=== PATIENT | female | born 1940 | race Caucasian/White ===

== ENCOUNTER 2017-02-02 18:54 | Inpatient (IN) | payer MEDICARE, OTHER ==
[~2017-02-02] VITALS: Ht 167.6 cm; Wt 55.8 kg
--- NOTE | 2017-02-02 19:55 | Diagnostic Imaging Report ---
Examination: Single AP view of the chest. COMPARISON: None. INDICATION: Weakness DISCUSSION: The lungs are well-inflated. There is a small left pleural effusion with adjacent lingular and left lower lobe airspace opacity. The right lung is grossly clear. Cardiomediastinal contour is obscured at the apex. There is atherosclerotic calcification of the aortic arch. No acute osseous abnormality. Postsurgical changes along the left lateral chest wall. IMPRESSION: Small left pleural effusion with adjacent lingular and lower lobe airspace disease, which may reflect atelectasis, aspiration, or pneumonia in the appropriate clinical setting. Signed by: Dr. Burt Rosas M.D. on 02/02/2017 7:51 PM
[2017-02-02 21:08] LABS: BASOPHILS # (AUTO) 0.1 (0.0-0.1); EOSINOPHILS # (AUTO) 0.1 (0.0-0.4); EOSINOPHILS % 1.5 % (0.0-6.0); HEMATOCRIT 37.3 % (34.2-44.1); LYMPHOCYTES # (AUTO) 1.2 (1.0-3.2); LYMPHOCYTES % 24.5 % (18.0-39.1); MEAN CORPUSCULAR HEMOGLOBIN 27.3 pg (28-32); MEAN CORPUSCULAR HGB CONC 32.2 g/dL (31-35); MEAN CORPUSCULAR VOLUME 84.8 fL (81-99); MONOCYTES # (AUTO) 0.3 (0.2-0.8); MONOCYTES % 5.8 % (4.4-11.3); NEUTROPHILS # (AUTO) 3.2 (2.1-6.9); PLATELET COUNT 221 x10e3/uL (140-360); RED CELL DISTRIBUTION WIDTH 13.9 % (11.7-14.4)
[2017-02-02] MEDS ORDERED: SERTRALINE HCL50 MG PO (21:11)
[2017-02-02] MEDS ORDERED: OMEPRAZOLE40 MG PO (21:11)
[2017-02-02] MEDS ORDERED: LISINOPRIL2.5 MG PO (21:11)
[2017-02-02] MEDS ORDERED: POTASSIUM CHLO10 ME1 PO (21:11)
[2017-02-02] MEDS ORDERED: ASPIRIN EC81 MG PO (21:11)
[2017-02-02 21:26] LABS: ALANINE AMINOTRANSFERASE 11 IU/L (0-55); ALBUMIN 3.4 g/dL (3.5-5.0); ALBUMIN/GLOBULIN RATIO 0.8 (0.8-2.0); ALKALINE PHOSPHATASE 90 IU/L (40-150); ANION GAP 13.1 mmol/L (8-16); BLOOD UREA NITROGEN 20 mg/dL (7-26); BUN/CREATININE RATIO 29 (6-25); CALCIUM 9.7 mg/dL (8.4-10.2); CARBON DIOXIDE 31 mmol/L (22-29); CHLORIDE 101 mmol/L (98-107); EST GLOMERULAR FILTRATION RATE > 60 ML/MIN (60-); GLUCOSE 144 mg/dL (74-118); POTASSIUM 3.1 mmol/L (3.5-5.1); SODIUM 142 mmol/L (136-145)
[2017-02-02] MEDS ORDERED: CEFTRIAXONE SOD 1 GM VIAL IV STA (23:41)
[2017-02-02] MEDS ORDERED: AZITHROMYCIN 500MG/NS 250 ML 250 ML IV STA (23:41)
[2017-02-02 23:56] LABS: BILIRUBIN,URINE 1+ (NEGATIVE); KETONES,URINE TRACE (NEGATIVE); LEUKOCYTE ESTERASE ,URINE TRACE (NEGATIVE); NITRITE,URINE NEGATIVE (NEGATIVE); URINE UROBILINOGEN 8 mg/dL (0.2 - 1)
[2017-02-02 23:57] LABS: CLARITY,URINE SL CLOUDY (CLEAR); COLOR,URINE YELLOW (YELLOW); PROTEIN,URINE DIPSTICK TRACE (NEGATIVE)
[2017-02-03 00:03] LABS: BACTERIA,URINE FEW /HPF; EPITHELIAL CELLS,URINE RARE /LPF; RBC,URINE 0-5 /HPF (0-5)
[2017-02-03] MEDS ORDERED: AZITHROMYCIN 500MG/SOD CHL 0.9% 250ML BAG IV SCH (00:15)
[2017-02-03] MEDS ORDERED: CEFTRIAXONE SOD 1 GM VIAL IV SCH (00:15)
[2017-02-03] MEDS ORDERED: KCL 20MEQ/.9 SOD CHL 1,000 ML IV ONE (00:15)
[2017-02-03 02:00] VITALS: BP 187/90
[2017-02-03 06:53] VITALS: BP 187/90
[2017-02-03] MEDS ORDERED: CLONIDINE HCL 0.1 MG TAB PO ONE (07:00)
[2017-02-03] MEDS ORDERED: CLONIDINE HCL 0.1 MG TAB PO PRN (08:00)
[2017-02-03 08:21] VITALS: BP 137/76
[2017-02-03] MEDS ORDERED: ASPIRIN 81 MG ENTERIC COATED PO SCH (09:00)
[2017-02-03] MEDS: LISINOPRIL 10 MG TAB PO SCH ×2 (09:00→17:00)
[2017-02-03] MEDS: POTASSIUM CHLORIDE 10 MEQ TABCR PO SCH (09:00)
[2017-02-03] MEDS ORDERED: LISINOPRIL 2.5 MG TAB PO SCH ×2 (09:00→17:00)
[2017-02-03] MEDS: SERTRALINE HCL 50 MG TAB PO SCH (09:00)
[2017-02-03] MEDS: MEMANTINE 10 MG TAB PO SCH ×2 (09:00→17:00)
[2017-02-03 09:27] LABS: ANION GAP 12.4 mmol/L (8-16); BLOOD UREA NITROGEN 15 mg/dL (7-26); BUN/CREATININE RATIO 27 (6-25); CALCIUM 8.2 mg/dL (8.4-10.2); CARBON DIOXIDE 29 mmol/L (22-29); CHLORIDE 107 mmol/L (98-107); CREATININE, SERUM 0.56 mg/dL (0.57-1.11); EST GLOMERULAR FILTRATION RATE > 60 ML/MIN (60-); GLUCOSE 92 mg/dL (74-118); POTASSIUM 3.4 mmol/L (3.5-5.1); SODIUM 145 mmol/L (136-145)
[2017-02-03 09:42] LABS: THYROID STIMULATING HORMONE 0.791 uIU/mL (0.350-4.940)
[2017-02-03] MEDS ORDERED: HEPARIN SOD (PORCINE) 5,000 UNIT/ML VIAL SC SCH (10:00)
--- NOTE | 2017-02-03 10:27 | Diagnostic Imaging Report ---
PROCEDURE:US CHEST (INCL MEDIASTINUM) COMPARISON:[facility], CHEST SINGLE (NOT PORTABLE), 02/02/2017, 19:03. INDICATION:R/O PLEURAL EFFUSION TECHNIQUE:Yepez scale color Doppler ultrasound chest. FINDINGS: See conclusion. CONCLUSION: 1. Moderate left pleural effusion with accompanying atelectasis. 2. No evidence of right effusion. Dictated by: Josh Dawson M.D. on 02/03/2017 at 10:36 Electronically approved by: Josh Dawson M.D. on 02/03/2017 at 10:36
--- NOTE | 2017-02-03 10:49 | Diagnostic Imaging Report ---
This report includes an Addendum and supersedes previous reports for this exam. PROCEDURE:CT CHEST WITHOUT CONTRAST COMPARISON:[facility], CHEST SINGLE (NOT PORTABLE), 02/02/2017 INDICATIONS:Atelectasis TECHNIQUE: Routine protocol Volumetric CT chest. No intravenous or enteric contrast. Multiplanar reformatted images. DLP: 1320.13 FINDINGS: Lungs: Near-complete left lower lobe collapse. Mild left upper lobe interlobular septal thickening with minimal groundglass opacity. No definitive focal air space disease. Mild dependent right lower lobe medial subsegmental atelectasis and trace scar. Noncalcified posterior medial right upper lobe pleural based nodule measuring 8mm (image 31, series 5). Right lung is otherwise normal. Pleura: Large left pleural effusion. Normal right hemithorax Airways: Normal Lymph nodes: Normal Pulmonary arteries: Normal caliber. Pulmonary artery diameter 2.9 cm. Thoracic aorta and great vessels: Mild aortic arch atherosclerosis. Normal caliber. Heart and pericardium: Mild cardiomegaly. Trace pericardial effusion. Subdiaphragmatic organs: The liver demonstrates prominent portal veins with a smooth contour. The spleen is partially imaged, but enlarged with multiple low attenuation foci at the periphery and hilum measuring between 2 cm in diameter and 1.3 cm in thickness. Sliding-type hiatal hernia. Skeleton: Intact. Age expected multilevel degenerative disc disease. Healed sternum fracture. Soft tissues: Normal CONCLUSION: 1. Large left pleural effusion with near complete left lower lobe collapse. 2. Mild left upper lobe groundglass opacity may be a combination of subsegmental atelectasis with or without developing infection. No evidence of bronchial obstruction. 3. Nonspecific 8mm pleural based right upper lobe nodule. Followup CT recommended in 3 months. 4. Cardiomegaly with trace pericardial effusion. 5. Splenomegaly with portal vein prominent suggesting portal hypertension. A 2 cm low nodule is present in the spleen. Additionally, there is low attenuation along the splenic capsule. Contrast enhanced CT abdomen and pelvis is recommended for characterization of this findings as the differential diagnosis includes subacute splenic hematoma and perisplenic ascites (considered less likely given the absence of perihepatic ascites). Dictated by: Josh Dawson M.D. on 02/03/2017 at 10:57 Electronically approved by: Josh Dawson M.D. on 02/03/2017 at 10:57 ADDENDUM: Subacute fractures of the left fourth through tenth ribs. 3.2 x 2.2 cm right breast mass. The above findings were also noted on the CT abdomen from the same date. Dr. Salomon discussed these findings with Dr. Vail on 02/03. Dictated by: Josh Dawson M.D. on 02/06/2017 at 15:45 Electronically approved by: Josh Dawson M.D. on 02/06/2017 at 15:45
[2017-02-03] MEDS: PANTOPRAZOLE 40 MG 10ML VIAL IV SCH (11:00)
--- NOTE | 2017-02-03 11:05 | Consultation ---
DATE OF CONSULTATION: February 03, 2017 PULMONARY CONSULTATION An unfortunate 76-year-old woman admitted from the doctor's office. She has been living with the daughter, and admitted with altered mental status and suspected urinary tract infection and pneumonia, possible aspiration. She has a history of dementia, history of hypertension, history of left mastectomy for cancer. Not willing to go into her history other than she never smoked. MEDICATIONS: Include Prilosec, aspirin, lisinopril, potassium, and Zoloft. PHYSICAL EXAMINATION GENERAL: She is a slight white female in no acute distress, but not cooperative. VITALS: Temperature 96.3, pulse 80, respirations 16, blood pressure 137/61. HEENT: Head is normocephalic and atraumatic. Eyes: Extraocular movements intact. LUNGS: Diminished breath sounds, left base. Left mastectomy scar. HEART: Regular rhythm. ABDOMEN: Nontender. EXTREMITIES: Nonedematous. IMPRESSION 1. Apparent left lower lobe infiltrate and effusion: Rule out aspiration. 2. Urinary tract infection. 3. Dementia. 4. Hypertension. Check thyroid. Continue antibiotics. CT of chest and ultrasound. Possible thoracentesis. Broad-spectrum antibiotics. Speech therapy evaluation. Thyroid evaluation. Potassium is slightly diminished at 3.1. Albumin also slightly diminished at 3.4. Hemoglobin is normal at 12. White count is normal at 4.8. Occult malignancy is also a possibility. She is currently on azithromycin, Rocephin, IV fluids with potassium, aspirin, Aricept, lisinopril, Namenda, Protonix, potassium, and Zoloft. Continue with current management. Will await further x-ray studies. Thank you for this kind referral. Job#: [id number] CISCO
--- NOTE | 2017-02-03 11:45 | Diagnostic Imaging Report ---
History:Dementia, more confused last night Comparison studies:None Technique: Axial images were obtained from the skull base to the vertex. Coronal and sagittal images reconstructed from the axial data. Intravenous contrast: None Findings: Scalp/skull: No abnormalities. Extra-axial spaces: No masses. No fluid collections. Brain sulci: Moderately prominent. Ventricles: Moderate to severe compensatory dilatation. No hydrocephalus. Parenchyma: Confluent hypodensities in the supratentorial white matter are small vessel ischemic changes. No masses, hemorrhage, acute or chronic cortical vascular insults. Supra and infratentorial volume loss more significant at the temporal lobes and hippocampi. Sellar/suprasellar region: No abnormalities. Craniocervical junction: Patent foramen magnum. No Chiari one malformation. Incidental findings: Atherosclerotic calcifications in the carotid siphons . Impression: No acute abnormalities. Chronic findings: 1. Moderate to severe generalized volume loss more significant at the bilateral temporal lobes and hippocampi, which can be seen on Alzheimer's disease. 2. Severe supratentorial white matter small vessel ischemic changes. Signed by: DR Gary Grady M.D. on 02/03/2017 11:41 AM
[2017-02-03 12:02] VITALS: BP 154/72
[2017-02-03 12:12] LABS: PARTIAL THROMBOPLASTIN TIME 35.3 seconds (23.8-35.5)
[2017-02-03 12:16] LABS: INR 0.97; PROTHROMBIN TIME 13.4 seconds (11.9-14.5)
[2017-02-03] MEDS ORDERED: POTASSIUM CHLORIDE 10MEQ/100ML 100 ML IV ONE (13:15)
[2017-02-03] MEDS ORDERED: LORAZEPAM 1 MG TAB PO ONE (13:30)
[2017-02-03] MEDS ORDERED: POTASSIUM CHLORIDE 10 MEQ in SODIUM CHLORIDE 0.9% 1000ML 1,000 ML IV ONE (14:30)
--- NOTE | 2017-02-03 14:51 | Diagnostic Imaging Report ---
Ultrasound-guided Thoracentesis February 03, 2017 Pre-Procedure Diagnosis: Left pleural effusion Post-procedure Diagnosis:Left pleural effusion Slab Polisher: Cira Dawson Plastic Molder: None Sedation: None. 1% lidocaine local anesthesia. Estimate blood loss: None. Blood administered: None Complications: None Implants/Grafts: None Specimen: 750 mL serous fluid. Procedure: Informed consent was obtained and the patient positioned right decubitus in the ultrasound suite. A timeout was performed, followed by preliminary ultrasound of the chest. The back was prepped and draped in standard sterile fashion. Using real-time ultrasound guidance a 5-Palestinian one-step centesis needle was advanced into the left thoracic cavity. An image was stored in the electronic medical record. 750 mL serous fluid was aspirated. At the end of the procedure the catheter was removed and a sterile dressing applied. The patient tolerated the procedure well. No complications. Findings: Large volume left effusion. Impression: Successful ultrasound-guided left thoracentesis with removal of 750 mL of fluid. Samples were submitted for evaluation if requested by the referring clinician. This report was generated with voice-recognition technology. Errors in gas meter prover can occur. Please interpret accordingly and contact a radiologist if there are any questions regarding the report. Signed by: Dr. Josh Dawson M.D. on 02/03/2017 2:48 PM
--- NOTE | 2017-02-03 14:56 | Diagnostic Imaging Report ---
PROCEDURE:CHEST XRAY POST PROCEDURE TECHNIQUE:Portable AP chest INDICATION:Left thoracentesis COMPARISON:[facility], DX, CHEST SINGLE (NOT PORTABLE), 02/02/2017, 19:03. FINDINGS: See conclusion. CONCLUSION: 1. No evidence of pneumothorax. 2. Near-complete resolution of left pleural effusion. 3. Persistent left lower lobe atelectasis with mild left hemidiaphragm elevation. 4. Stable cardiomediastinal silhouette. Mild leftward shift consistent with volume loss. 5. Left axillary surgical clips. Dictated by: Josh Dawson M.D. on 02/03/2017 at 15:04 Electronically approved by: Josh Dawson M.D. on 02/03/2017 at 15:04
[2017-02-03 15:59] VITALS: BP 127/58
--- NOTE | 2017-02-03 16:29 | Diagnostic Imaging Report ---
EXAM: CT Abdomen and Pelvis WITH contrast INDICATION: \S\uti \[id number] \S\[id number] COMPARISON: None. TECHNIQUE: Abdomen and pelvis were scanned utilizing a multidetector helical scanner from the lung base to the pubic symphysis after administration of IV contrast. Coronal and sagittal reformations were obtained. Routine protocol was performed. Scan was performed when during portal venous phase. IV CONTRAST: 100 mL of Isovue-370 ORAL CONTRAST: Water COMPLICATIONS: None RADIATION DOSE: Total DLP: 440.5 mGy*cm Estimated effective dose: (DLP x 0.015 x size factor) mSv CTDIvol has been reviewed. It is below the limits set by the Radiation Protocol Committee (RPC). FINDINGS: LINES and TUBES: None. LOWER THORAX: Trace left pleural effusion with adjacent compressive atelectasis. There is also dependent atelectasis of the right base. Tiny left Bochdalek hernia (series 2, image 12). Trace pericardial fluid. HEPATOBILIARY: No focal hepatic lesions. Proximal common bile duct distention up to 1.1 cm with gradual distal narrowing. GALLBLADDER: Contracted, limiting evaluation. No wall thickening. SPLEEN: There are superior spleen lacerations (series 301, image 47) with subcapsular splenic hematoma. 2.3 cm splenic hypodensity with internal attenuation around 54 Hounsfield units. PANCREAS: 1.1 cm cystic lesion in the uncinate process of pancreas (series 2, image 36), connecting to the pancreatic duct.. No pancreatic ductal dilatation. ADRENALS: No adrenal nodules KIDNEYS/URETERS: Kidneys enhance symmetrically. No hydronephrosis. Bilateral subcentimeter hypodensities which are too small to characterize. No renal mass. No stones. GI TRACT: No abnormal distention, wall thickening, or evidence of bowel obstruction. PELVIC ORGANS/BLADDER: Nondependent air within bladder. Please correlate with history of instrumentation. 2.7 cm left ovarian cyst. Retroverted uterus. LYMPH NODES: No lymphadenopathy. VESSELS: Moderate aortoiliac atherosclerotic disease. No aneurysmal dilatation. PERITONEUM / RETROPERITONEUM: No free air or fluid. BONES: Mild lumbar spine scoliosis with multilevel degenerative changes. Subacute healing nondisplaced fractures of the left lateral sixth through 10th ribs. SOFT TISSUES: 3.5 x 1.9 cm right breast mass (series 2, image 7). IMPRESSION: 1. Splenic lacerations with subcapsular hematoma. There are also healing nondisplaced left rib fractures, suggestive of recent trauma. 2. Trace left pleural effusion with adjacent compressive atelectasis. 3. 1.1 cm pancreatic uncinate process cystic lesion, probably a side branch IPMN. 4. Right breast mass. Please correlate with mammography. 5. 2.7 cm left ovarian cyst can be followed up with pelvic ultrasound in this post menopausal patient. Findings discussed with Dr. Vail at 4:24 PM, on 02/03/2017. Signed by: Dr. Ivan Salomon MD on 02/03/2017 4:25 PM
--- NOTE | 2017-02-03 16:37 | History and Physical ---
CHIEF COMPLAINT 1. Confusion. 2. Change in mental status. 3. Very weak. HISTORY OF PRESENT ILLNESS: This is a 76-year-old female with a past medical history of dementia, hypertension, hyperlipidemia, who was in his usual state of health until the last few days patient's daughter thinks patient has a change in condition. They want to put mother on hospice, but I say we need a diagnosis and we need to find out what is her current medical condition. No diarrhea, no constipation. Patient has some drooling. No abdomen pain. No leg pain. Has some leg weakness. PAST MEDICAL HISTORY: Hyperlipidemia, hypertension, and carcinoma of left breast, left mastectomy for CA of breast. SOCIAL HISTORY: Patient , lives with her daughter. Denies smoking cigarettes and alcohol use. FAMILY HISTORY: Noncontributory. REVIEW OF SYSTEMS CONSTITUTIONAL: Denies fatigue and weakness. HEENT: No diplopia, no blurring of vision. CARDIOPULMONARY: No chest pain, no shortness of breath, no cough. ALIMENTARY: No nausea, no vomiting. MUSCULOSKELETAL: Has some lower extremity weakness. CENTRAL NERVOUS SYSTEM: Patient is confused, oriented x0. PHYSICAL EXAMINATION GENERAL: This is a 76-year-old female who is alert, oriented x2. VITAL SIGNS: Temperature 96.3, pulse 80, respiratory rate 16, blood pressure 137/76. HEENT: Has mild restricted movement on the neck. Head atraumatic. No JVD, no carotid bruit. LUNGS: Air entry fair. No added sound. HEART: S1 and S2. Regular rate and rhythm. No S3, no S4 or murmur. ABDOMEN: Soft, nontender. No guarding, no rigidity. EXTREMITIES: . Peripheral pulses +1. STUDIO ARTIST: Weakness. CBC normal. Sodium 142, potassium 3.1, BUN 10, creatinine normal. LFT normal. Urine white count 11-20. Chest x-ray shows possible pneumonia. Cardiac enzyme is negative. CT of head: Moderate to severe generalized volume loss significant at the bilateral temporal lobe and . This can be Alzheimer's disease, severe, the white matter ischemic changes. ASSESSMENT 1. Pneumonia, possible community-acquired pneumonia versus aspiration pneumonia. 2. Urinary tract infection. 3. Severe dementia, worsening. 4. Rule out aspiration pneumonia. 5. Hypertension. PLAN: Admit to telemetry. Neuro consult with Dr. Small. Pulmonary consult with Dr. Vail. IV Rocephin and Zithromax. IV fluid with normal saline at 75 mL an hour with 10 of potassium in each IV bag. Lab in the morning. Swallowing evaluation. Continue all other home medicine. Condition and prognosis explained to the daughter. Job#: [id number] EV
--- NOTE | 2017-02-03 16:45 | Consultation ---
DATE OF CONSULTATION: February 03, 2017, at 1 o'clock. NEUROLOGICAL CONSULTATION A patient of Dr. Festus Dewitt. REASON FOR CONSULTATION: Altered mental status. HISTORY OF PRESENT ILLNESS: This is a 76-year-old lady with a history of dementia, living with her daughter. Apparently in the last several days the patient has been more confused, more restless, and they brought her to the hospital and found that she has some possible pneumonia and a urinary tract infection. Neuro consultation has been requested because of the altered mental status. PAST HISTORY: She has history of hypertension, has history of severe dementia, Alzheimer's disease type, has history of breast cancer. SURGERY: Has had a mastectomy. ALLERGIES: NONE KNOWN. SOCIAL HISTORY: Noncontributory. LIST OF MEDICATION: Is taking lisinopril for her blood pressure, memantine 5 mg twice a day, clonidine, ceftriaxone, azithromycin, sertraline 50 mg a day, potassium and aspirin. REVIEW OF SYSTEMS: Unable to perform because of the mental status. GENERAL PHYSICAL EXAMINATION VITAL SIGNS: Blood pressure 154/72, pulse 56, temperature 96. LUNGS: Clear to auscultation. HEART: Regular sinus rhythm. No murmur. ABDOMEN: Soft. No tenderness. No organomegaly. EXTREMITIES: No edema. NEUROLOGIC Mental status: The patient is a little obtunded, arousable, opens her eyes and smiles a little bit but does not follow verbal commands. Cranial nerves: Pupils were small with sluggish reaction. External ocular movements were full. Visual field was normal. No facial weakness. Tongue protrudes midline. Motor power: She is moving all 4 extremities symmetrically. Plantar stimulation is down bilaterally. Patient has become uncooperative. LABORATORY WORKUP: CBC shows a white count that was 4820, hemoglobin of 12, hematocrit 37.3, platelets 221,000. Chemistry: Sodium 145, potassium 3.4, BUN 15, creatinine 0.56. Estimated GFR is 0.53, a little bit low. Troponin negative. TSH normal. Urinalysis: Bacteria few, WBC 11-20. CAT scan of the brain shows significant atrophy of both temporal lobes, chronic small-vessel disease, no acute pathology. IMPRESSION 1. Dementia, Alzheimer's disease type, apparently moderate to advanced stage. 2. Pneumonia. 3. Hypertension. RECOMMENDATION: Continue with the medication she is taking above. I will closely follow and will discuss with the family members whenever they are present. Job#: [id number] EV
[2017-02-03 17:00] LABS: HEMATOCRIT 31.9 % (34.2-44.1); HEMOGLOBIN 10.4 g/dL (12.0-16.0)
[2017-02-03 17:34] LABS: CREATINE KINASE 44 IU/L (29-168)
[2017-02-03 17:48] LABS: BODY FLUID APPEARANCE CLOUDY; BODY FLUID COLOR YELLOW; BODY FLUID TYPE PLEURAL
[2017-02-03 17:49] LABS: RBC,BODY FLUID 698 cells/uL; WBC,BODY FLUID 264 cells/uL
[2017-02-03 19:02] LABS: LYMPHOCYTES,BODY FLUID 66 %; MONO/MACROPHG,BODY FLUID 21 %; NEUTROPHILS,BODY FLUID 13 %
[2017-02-03] MEDS: DONEPEZIL HCL 5 MG TAB PO SCH (20:46)
[2017-02-03] MEDS: AZITHROMYCIN 500MG/NS 250 ML 250 ML IV SCH (20:46)
[2017-02-03 20:48] VITALS: BP_SYST 102; BP_SYST 145; BP_DIAS 58; BP_DIAS 75
[2017-02-03] MEDS: CEFTRIAXONE SOD 1 GM/NS 50 ML 50 ML IV SCH (22:00)
[2017-02-03] MEDS ORDERED: SODIUM CHLORIDE 0.9% 50ML 50 ML ONE (23:13)
[2017-02-03] MEDS ORDERED: IOPAMIDOL 370 MG/ML 200 ML INFUS..BTL INJ ONE (23:13)
[2017-02-04] MEDS: CEFTRIAXONE SOD 1 GM/NS 50 ML 50 ML IV SCH (00:08)
[2017-02-04 00:51] VITALS: BP 137/82
[2017-02-04 05:02] VITALS: BP 151/84
--- NOTE | 2017-02-04 06:30 | Diagnostic Imaging Report ---
EXAM: CHEST SINGLE (PORTABLE), AP 1 view DATE: 02/04/2017 5:00 AM Time stamp on exam: 0545 hours INDICATION: Pneumonia COMPARISON: AP view of the chest February 03, 2017 FINDINGS: LINES/TUBES: None LUNGS: Bibasilar atelectasis. PLEURA: Interval increased left pleural effusion. HEART AND MEDIASTINUM: Stable BONES AND SOFT TISSUES: Left axillary surgical clips. IMPRESSION: Increasing left lower lobe atelectasis and effusion. Signed by: Dr. Georgette Carrasco M.D. on 02/04/2017 6:26 AM
[2017-02-04 08:15] LABS: BASOPHILS % 0.9 % (0.0-1.0); EOSINOPHILS # (AUTO) 0.2 (0.0-0.4); EOSINOPHILS % 3.6 % (0.0-6.0); HEMATOCRIT 35.2 % (34.2-44.1); HEMOGLOBIN 11.5 g/dL (12.0-16.0); LYMPHOCYTES # (AUTO) 1.7 (1.0-3.2); LYMPHOCYTES % 39.1 % (18.0-39.1); MEAN CORPUSCULAR HEMOGLOBIN 27.8 pg (28-32); MEAN CORPUSCULAR HGB CONC 32.7 g/dL (31-35); MONOCYTES # (AUTO) 0.3 (0.2-0.8); MONOCYTES % 6.4 % (4.4-11.3); NEUTROPHILS # (AUTO) 2.1 (2.1-6.9); NEUTROPHILS % 49.8 % (38.7-80.0); PLATELET COUNT 204 x10e3/uL (140-360); RED BLOOD COUNT 4.14 x10e6/uL (3.6-5.1); RED CELL DISTRIBUTION WIDTH 13.9 % (11.7-14.4)
[2017-02-04 08:31] LABS: ALANINE AMINOTRANSFERASE 7 IU/L (0-55); ALBUMIN 2.8 g/dL (3.5-5.0); ALBUMIN/GLOBULIN RATIO 0.8 (0.8-2.0); ALKALINE PHOSPHATASE 72 IU/L (40-150); ANION GAP 8.7 mmol/L (8-16); BLOOD UREA NITROGEN 8 mg/dL (7-26); BUN/CREATININE RATIO 13 (6-25); CALCIUM 8.8 mg/dL (8.4-10.2); CARBON DIOXIDE 30 mmol/L (22-29); CHLORIDE 108 mmol/L (98-107); CREATININE, SERUM 0.64 mg/dL (0.57-1.11); EST GLOMERULAR FILTRATION RATE > 60 ML/MIN (60-); GLUCOSE 87 mg/dL (74-118); POTASSIUM 3.7 mmol/L (3.5-5.1); SODIUM 143 mmol/L (136-145)
[2017-02-04] MEDS: POTASSIUM CHLORIDE 10 MEQ TABCR PO SCH (09:15)
[2017-02-04] MEDS: SERTRALINE HCL 50 MG TAB PO SCH (09:15)
[2017-02-04] MEDS: MEMANTINE 10 MG TAB PO SCH ×2 (09:15→16:45)
[2017-02-04] MEDS: LISINOPRIL 10 MG TAB PO SCH (09:15)
[2017-02-04] MEDS: PANTOPRAZOLE 40 MG 10ML VIAL IV SCH (09:15)
[2017-02-04 09:27] VITALS: BP 173/99
[2017-02-04 12:12] VITALS: BP 179/106
[2017-02-04] MEDS ORDERED: POTASSIUM CHLORIDE 20 MEQ TAB CR PO ONE (13:00)
[2017-02-04 16:30] VITALS: BP 155/76
[2017-02-04] MEDS: METOPROLOL TARTRATE 25 MG TAB PO SCH (16:45)
[2017-02-04] MEDS: LISINOPRIL 20 MG TAB PO SCH (16:45)
[2017-02-04 20:14] VITALS: BP 166/106
[2017-02-04] MEDS: DONEPEZIL HCL 5 MG TAB PO SCH (20:35)
[2017-02-04] MEDS: AZITHROMYCIN 500MG/NS 250 ML 250 ML IV SCH (20:35)
[2017-02-04] MEDS ORDERED: SODIUM CHLORIDE 0.9% 250ML 250 ML ONE (20:47)
[2017-02-05 00:17] VITALS: BP 137/77
[2017-02-05 05:18] VITALS: BP 161/83
[2017-02-05 08:13] VITALS: BP 148/76
[2017-02-05] MEDS: PANTOPRAZOLE SOD 40 MG TABEC PO SCH (09:05)
[2017-02-05] MEDS: SERTRALINE HCL 50 MG TAB PO SCH (09:05)
[2017-02-05] MEDS: POTASSIUM CHLORIDE 10 MEQ TABCR PO SCH (09:05)
[2017-02-05] MEDS: LISINOPRIL 20 MG TAB PO SCH ×2 (09:05→17:15)
[2017-02-05] MEDS: MEMANTINE 10 MG TAB PO SCH ×2 (09:05→17:15)
[2017-02-05] MEDS: METOPROLOL TARTRATE 25 MG TAB PO SCH ×2 (09:08→17:15)
[2017-02-05 11:33] LABS: ALANINE AMINOTRANSFERASE 6 IU/L (0-55); ALBUMIN 2.7 g/dL (3.5-5.0); ALBUMIN/GLOBULIN RATIO 0.8 (0.8-2.0); ALKALINE PHOSPHATASE 66 IU/L (40-150); AMYLASE 35 U/L (25-125); ANION GAP 9.4 mmol/L (8-16); BLOOD UREA NITROGEN 8 mg/dL (7-26); BUN/CREATININE RATIO 15 (6-25); CALCIUM 8.7 mg/dL (8.4-10.2); CARBON DIOXIDE 28 mmol/L (22-29); CHLORIDE 101 mmol/L (98-107); CREATININE, SERUM 0.55 mg/dL (0.57-1.11); EST GLOMERULAR FILTRATION RATE > 60 ML/MIN (60-); GLUCOSE 85 mg/dL (74-118); LIPASE 14 U/L (8-78); MAGNESIUM 1.3 MG/DL (1.3-2.1); POTASSIUM 3.4 mmol/L (3.5-5.1); SODIUM 135 mmol/L (136-145)
[2017-02-05] MEDS ORDERED: VANCOMYCIN 1GM/NS 250 ML 250 ML IV ONE (12:15)
[2017-02-05 12:42] VITALS: BP 151/91
[2017-02-05] MEDS ORDERED: MAGNESIUM OXIDE 400 MG TAB PO ONE (15:00)
[2017-02-05] MEDS ORDERED: POTASSIUM CHLORIDE 20 MEQ TAB CR PO ONE (15:00)
[2017-02-05 16:38] VITALS: BP 142/77
[2017-02-05 20:00] VITALS: BP 139/67
[2017-02-05] MEDS: AZITHROMYCIN 500MG/NS 250 ML 250 ML IV SCH (21:30)
[2017-02-05] MEDS: DONEPEZIL HCL 5 MG TAB PO SCH (21:30)
[2017-02-05] MEDS: CEFTRIAXONE SOD 1 GM/NS 50 ML 50 ML IV SCH (22:30)
[2017-02-06] VITALS (8 sets, daily range): BP systolic 146–179; BP diastolic 70–88
--- NOTE | 2017-02-06 06:44 | Consultation ---
DATE OF CONSULTATION: February 05, 2017 CHIEF COMPLAINT: Abnormal CT scan. HISTORY OF PRESENT ILLNESS: A very pleasant 76-year-old lady who comes in with possible pneumonia, splenic hematoma and chest trauma. Consequently, due to incidental finding on CT scan of dilated bile duct and small 1 cm cystic lesion in the pancreas. This is in the uncinate process. LFTs are totally normal at this time. She appeared to have had a cholecystectomy in the past. There is no liver masses on recent CT scan. She is aphasic. Unable to eat and unable to talk. CT scan was done with contrast. PAST MEDICAL HISTORY: Dementia and CVA. The patient is nonverbal. On CT scan, she appears to have the gallbladder still there, but however, is contracted. SURGICAL HISTORY: See old records. SOCIAL: Lives at home. No toxic habits. MEDICATIONS: See list. PHYSICAL EXAMINATION VITALS: Blood pressure 140/80, pulse 80, temperature 98. GENERAL: This is a well-nourished elderly lady in no distress. HEENT: No pallor. CHEST: Clear. ABDOMEN: Soft and nontender. EXTREMITIES: No edema. ASSESSMENT AND PLAN: Abnormal computerized tomography scan. The patient has a small cystic cyst in the pancreas. This could be benign versus the beginning of cystic malignancy. She also has a dilated bile duct. However, she does not have elevated liver function tests. At the present time, the best approach will be to consider endoscopic ultrasound when the patient is more stable. This procedure is not available here at [facility]. She will have to arrange for this to be done as an outpatient either at [facility] or [facility]. Dilatation of the pancreas is quite small. It is unclear that will require any surgical intervention. However, with the dilated bile duct she might benefit from an magnetic resonance cholangiopancreatography initially to assess if there is any evidence of mass in the bile duct. With the normal liver function tests and no pain, the chances of low yield that it will be common bile duct stone or a malignancy. Job#: [id number] CISCO
[2017-02-06 07:08] LABS: BASOPHILS % 0.9 % (0.0-1.0); EOSINOPHILS # (AUTO) 0.2 (0.0-0.4); EOSINOPHILS % 3.7 % (0.0-6.0); HEMATOCRIT 32.3 % (34.2-44.1); HEMOGLOBIN 10.5 g/dL (12.0-16.0); LYMPHOCYTES # (AUTO) 1.7 (1.0-3.2); LYMPHOCYTES % 38.9 % (18.0-39.1); MEAN CORPUSCULAR HEMOGLOBIN 27.1 pg (28-32); MEAN CORPUSCULAR HGB CONC 32.5 g/dL (31-35); MEAN CORPUSCULAR VOLUME 83.5 fL (81-99); MONOCYTES # (AUTO) 0.4 (0.2-0.8); MONOCYTES % 8.1 % (4.4-11.3); NEUTROPHILS # (AUTO) 2.1 (2.1-6.9); NEUTROPHILS % 48.2 % (38.7-80.0); PLATELET COUNT 203 x10e3/uL (140-360); RED BLOOD COUNT 3.87 x10e6/uL (3.6-5.1); RED CELL DISTRIBUTION WIDTH 13.7 % (11.7-14.4)
[2017-02-06 07:46] LABS: ALBUMIN 2.5 g/dL (3.5-5.0); ALBUMIN/GLOBULIN RATIO 0.8 (0.8-2.0); ALKALINE PHOSPHATASE 62 IU/L (40-150); ANION GAP 9.5 mmol/L (8-16); BLOOD UREA NITROGEN 10 mg/dL (7-26); BUN/CREATININE RATIO 17 (6-25); CALCIUM 8.7 mg/dL (8.4-10.2); CARBON DIOXIDE 27 mmol/L (22-29); CHLORIDE 106 mmol/L (98-107); EST GLOMERULAR FILTRATION RATE > 60 ML/MIN (60-); GLUCOSE 93 mg/dL (74-118); POTASSIUM 3.5 mmol/L (3.5-5.1); SODIUM 139 mmol/L (136-145)
[2017-02-06 07:53] LABS: ALANINE AMINOTRANSFERASE < 6 IU/L (0-55)
[2017-02-06] MEDS: POTASSIUM CHLORIDE 10 MEQ TABCR PO SCH (08:54)
[2017-02-06] MEDS: METOPROLOL TARTRATE 25 MG TAB PO SCH ×2 (08:55→16:51)
[2017-02-06] MEDS: MEMANTINE 10 MG TAB PO SCH ×2 (08:55→16:51)
[2017-02-06] MEDS: LISINOPRIL 20 MG TAB PO SCH ×2 (08:56→16:51)
[2017-02-06] MEDS: SERTRALINE HCL 50 MG TAB PO SCH (08:56)
[2017-02-06] MEDS: PANTOPRAZOLE SOD 40 MG TABEC PO SCH (08:56)
[2017-02-06] MEDS ORDERED: POTASSIUM CHLORIDE 20MEQ/15ML UDC PO ONE (09:00)
--- NOTE | 2017-02-06 15:33 | Diagnostic Imaging Report ---
PROCEDURE:PELVIC ULTRASOUND COMPARISON:[facility], CT, CT ABDOMEN/PELVIS W, 02/03/2017, 15:08. INDICATIONS:LT OVARIAN CYSTIC LESION TECHNIQUE: Yepez scale and color Doppler ultrasound pelvis FINDINGS: Anteverted uterus measuring 6.4 x 4.2 x 4.2 cm. Endometrial thickness 7 mm. The ovaries are obscured by bowel gas. No free fluid. CONCLUSION: The ovaries are obscured and cannot be evaluated. Dictated by: Josh Dawson M.D. on 02/06/2017 at 15:40 Electronically approved by: Josh Dawson M.D. on 02/06/2017 at 15:40
--- NOTE | 2017-02-06 16:26 | Diagnostic Imaging Report ---
PROCEDURE:CHEST SINGLE (PORTABLE) TECHNIQUE:Portable AP chest INDICATION:Pleural effusion. COMPARISON:[facility], DX, CHEST SINGLE (NOT PORTABLE), 02/02/2017, 19:03. [facility], DX, CHEST SINGLE (PORTABLE), 02/04/2017, 5:45. FINDINGS: See conclusion. CONCLUSION: 1. Moderate to large left pleural effusion with left lower lobe and lingular atelectasis. Volume has increased relative to February 04 and is similar to the baseline radiograph of February 02. 2. Clear right lung. 3. Normal heart size and mediastinal contour for technique. 4. Intact skeleton. Left axillary surgical clips. Dictated by: Josh Dawson M.D. on 02/06/2017 at 16:34 Electronically approved by: Josh Dawson M.D. on 02/06/2017 at 16:34
--- NOTE | 2017-02-06 17:13 | Diagnostic Imaging Report ---
PROCEDURE:US CHEST (INCL MEDIASTINUM) COMPARISON:[facility], US CHEST (INCL MEDIASTINUM), 02/03/2017, 9:30. INDICATIONS:Pleural effusion TECHNIQUE:Grayscale ultrasound chest FINDINGS: See conclusion. CONCLUSION: 1. Moderate simple left pleural effusion. 2. No right effusion. Dictated by: Josh Dawson M.D. on 02/06/2017 at 17:21 Electronically approved by: Josh Dawson M.D. on 02/06/2017 at 17:21
[2017-02-06] MEDS: AZITHROMYCIN 500MG/NS 250 ML 250 ML IV SCH (20:18)
[2017-02-06] MEDS: DONEPEZIL HCL 5 MG TAB PO SCH (20:18)
[2017-02-06] MEDS: CEFTRIAXONE SOD 1 GM/NS 50 ML 50 ML IV SCH (22:00)
[2017-02-07 00:36] VITALS: BP 164/87
[2017-02-07 05:31] VITALS: BP 155/78
[2017-02-07 07:54] VITALS: BP 144/85
[2017-02-07] MEDS: POTASSIUM CHLORIDE 10 MEQ TABCR PO SCH (08:25)
[2017-02-07] MEDS: PANTOPRAZOLE SOD 40 MG TABEC PO SCH (08:26)
[2017-02-07] MEDS: LISINOPRIL 20 MG TAB PO SCH ×2 (08:26→17:36)
[2017-02-07] MEDS: METOPROLOL TARTRATE 25 MG TAB PO SCH ×2 (08:26→17:36)
[2017-02-07] MEDS: SERTRALINE HCL 50 MG TAB PO SCH (08:26)
[2017-02-07] MEDS: MEMANTINE 10 MG TAB PO SCH (08:28)
[2017-02-07] MEDS ORDERED: ANASTROZOLE 1 MG TAB PO SCH (09:00)
[2017-02-07 13:14] VITALS: BP 141/75
[2017-02-07] MEDS ORDERED: MEMANTINE 10 MG TAB PO SCH (17:00)
[2017-02-07 17:04] VITALS: BP 151/81
[2017-02-07] MEDS ORDERED: DONEPEZIL HCL 5 MG TAB PO SCH (21:00)
--- NOTE | 2017-02-09 08:10 | Diagnostic Imaging Report ---
#[id number] - MGDXRT #UNILATERAL RIGHT DIGITAL DIAGNOSTIC MAMMOGRAM WITH CAD: 02/06/2017 No prior exams were available for comparison. Current study contains 2 films. The tissue of the right breast is predominantly fatty. Current study was also evaluated with a Computer Aided Detection (CAD) system. There are benign calcifications in the right breast. Vascular calcification also present. No significant masses, calcifications, or other findings are seen in the breast. IMPRESSION: BENIGN There is no mammographic evidence of malignancy. A 1 year screening mammogram is recommended. The patient will be notified by letter of the results. Ernie Ramírez Jr., D.O. cw/:02/08/2017 13:18:44 Lead Relay Tester: Eve RESTREPO(R)(M), [facility] letter sent: Normal Exam Mammogram BI-RADS: 2 Benign
--- NOTE | 2017-02-09 08:10 | Diagnostic Imaging Report ---
#[id number] - USBRECOMRT ULTRASOUND OF THE RIGHT BREAST : 02/06/2017 Comparison is made to exam dated: 02/06/2017 mammogram - [facility]. Color flow and real-time ultrasound were performed on the right breast. -There is a small cyst measuring 3 mm at 2 o'clock 5 cm from the nipple -No large mass or evidence of malignancy IMPRESSION: BENIGN There is no sonographic evidence of malignancy. A 1 year screening mammogram is recommended. Ernie Ramírez Jr., D.O. cw/:02/08/2017 13:21:51 Medical Staff Services Manager: RADHA RESTREPO, [facility] letter sent: Normal Exam Ultrasound BI-RADS: 2 Benign
--- NOTE | 2017-03-02 13:39 | Consultation ---
DATE OF CONSULTATION: February 06, 2017 ATTENDING PHYSICIAN: Eric Dewitt MD Jeanne Howe is a 76-year-old female who has been referred to me for evaluation of right breast cancer. History of left breast cancer. The patient had presented now with a UTI, bronchopneumonia, pleural effusion. No history could be obtained as this patient is aphasic because of a stroke in the past. ALLERGIES REPORTED: LEVAQUIN. MEDICATIONS AT THIS TIME 1. Zithromax. 2. Ceftriaxone. 3. Potassium. 4. Zoloft. 5. Clonidine. 6. Donepezil. 7. Memantine. 8. Protonix. 9. Lisinopril. 10. Metoprolol. REVIEW OF SYSTEMS HEENT: Normal. CARDIAC: History of hypertension. RESPIRATORY: At the present time bronchopneumonia. GI: Normal. : Normal. MUSCULOSKELETAL: The patient is aphasic from the stroke before. History of dementia. NEUROENDOCRINE: Normal. SKIN AND BREASTS: History of left mastectomy. PHYSICAL EXAMINATION GENERAL: A rather thin-built female. Anemic. No palpable adenopathy. HEART: Within normal limits. LUNGS: Clear. BREASTS: Exam could not be done properly because of inability of the patient to cooperate with me. CENTRAL NERVOUS SYSTEM: Could not be done. LABS: Hemoglobin 10.5, hematocrit 32.2, white count 4300, platelets 203,000. Sodium 139, potassium 3.5, chloride 106, CO2 27, BUN 10, creatinine 0.6. Bilirubin 0.7, SGOT 6, SGPT 11, alkaline phosphatase 62. IMPRESSION 1. Anemia of chronic disease. 2. Hypokalemia (2.1). 3. Hyperglycemia. 4. Hypoalbuminemia (3.4). 5. Hyperglobulinemia (4.3). 6. History of dementia. 7. History of cerebrovascular accident with aphasia. 8. Hypertension. 9. History of hyperlipidemia. 10. History of left breast cancer. 11. Bronchopneumonia. 12. Urinary tract infection. 13. Pleural effusion. 14. Pericardial effusion. 15. Portal hypertension by CAT scan of the abdomen. 16. Splenomegaly. 17. Splenic hematoma. 18. Left rib fracture. 19. Right breast mass by CAT scan. PLAN, COMMENTS AND SUGGESTIONS: When stable, have a right breast biopsy. Job#: [id number]
--- NOTE | 2017-03-29 11:01 | Discharge Summary ---
CHIEF COMPLAINT: UTI FINAL DIAGNOSES: 1. Urinary tract infection. 2. Pneumonia. 3. Right breast mass. 4. Left pleural effusion. 5. Hypertension. 6. Dementia. PROCEDURE: Ultrasound-guided thoracentesis, left chest. DISPOSITION: [facility]. A 76-year-old female seen in my office, loss of appetite, fatigue, weakness. Has had similar symptoms previously. Has a history of hypertension, some aphagia secondary to Alzheimer's, history of breast cancer. In the emergency room, patient was showing a BP of 193/84, pulse 67, temperature 96.5. Cardiac unremarkable. Chest unremarkable. Abdomen is soft, nontender. She underwent chest x-rays that were showing issues, findings of infiltrates. Mild findings of hypokalemia. Concern for possible UTI. Patient is admitted to the facility now regarding possible UTI with sepsis, bacterial pneumonia, acute cystitis, hypokalemia. As she was undergoing care regarding findings of her chest x-ray, Dr. Vail was following from a pulmonary standpoint; and with his evaluation, his impression was apparent left lower lobe pneumonia and effusion, rule out aspiration, urinary tract infection, dementia, hypertension. Requesting CT chest. Need for possible thoracentesis. She was also undergoing neurology follow with Dr. Small regarding issues of altered mental status; and with his evaluation of the patient's data and x-rays, impression was made of dementia, Alzheimer's disease type, apparently moderate to advanced stage; pneumonia; hypertension. GI was also being called in due to incidental findings of the CT scan, which was revealing a dilated bile duct and a small 1-cm cystic lesion in the pancreas. Dr. Hickman findings states that this is in uncinate process. Liver studies are normal, appeared to have had a gallbladder in the past. Patient is aphasic. States that at the current time, the best approach will be to consider endoscopic ultrasound when the patient is more stable. The procedure is not available here at this location, can be done at either [facility] or [facility]. Patient was being treated on the med-surg floor, on a cardiac diet. Patient was noted to have issues with dementia. Was started on azithromycin 250 mg IV daily, ceftriaxone 1 g IV q.24., was given IV fluids. Started on heparin 5000 units q.12. Daily medications were continuing. Laboratory studies were showing a borderline potassium of 3.4. Kidney function stable. Glucose 92. CBC stable. Liver enzymes stable. Regarding the pleural fluid noted in the chest, patient underwent ultrasound-guided thoracentesis by interventional radiology where 750 mL of fluid was removed. Other x-rays were showing evidence of a right breast mass. Her care was continuing, responding well to her medications, and overall chest condition improved following the thoracentesis. It is noted that she had sustained a fall at home about 3 weeks ago. This was followed up with evaluations, and with the findings on the x-rays, Dr. Bruce was asked to see the patient from a general surgery standpoint; and his assessment was a fall 3 weeks ago resulting in left rib fractures and contained splenic hematoma, left pleural effusion from #1 and questionable liver lesions, questionable breast metastasis. Plan is to repeat the CT of the chest and abdomen with IV contrast in a few days to reevaluate all these above issues. No need for surgical intervention at this time. Followup potassium was continued to be watched closely. She was started on potassium replenishment as needed, and it was noted as her care was continuing, her encephalopathy was showing some improvement. Breast mass was being reviewed by Dr. Zaragoza and it was felt that she had issues with metastatic disease from the breast. Recommending best supportive care, continuing on her antibiotics, and it was felt that the patient would benefit from further care and treatment, further monitoring and management of her medications. Evaluated for transfer to [facility] and she was accepted at that location and she was able to be transferred there on February 07, 2017 in stable condition. At that facility, she will continue on her current diet. Continue with the current IV access. MAR sheet will continue. Further monitoring and management will be carried out. I will be evaluating the patient daily at that facility. Adjustments will be made accordingly. Dictated By: JEANETTE Liriano NOHEMI HIGGINBOTHAM MD Job#: [id number]
--- NOTE | 2017-04-10 09:11 | Consultation ---
DATE OF CONSULTATION: February 04, 2017 SURGICAL CONSULTATION REASON FOR CONSULTATION: Rib fractures and left pleural effusion. This 76-year-old female was admitted to the hospital after presenting to the emergency room complaining of some difficulty breathing. Of note is the fact that the patient had a fall in the recent past where she suffered multiple rib fractures, and also a contained hematoma of the spleen. She was in her usual state of health trying to recover from this until her respiratory status deteriorated. She was brought to ER. A chest x-ray that was done showed her to have possible pneumonia and also pleural effusion. CT scan also showed the possibility of some liver metastases from an old breast cancer. PAST MEDICAL HISTORY: Remarkable for hypertension and cancer of the breast. MEDICATIONS: Please refer to MAR. REVIEW OF SYSTEMS: Otherwise unremarkable. PHYSICAL EXAMINATION GENERAL: At time that we saw the patient revealed a female lying in bed complaining of some left chest pain. VITAL SIGNS: Were otherwise stable. HEENT: Showed no acute inflammation. NECK: No masses or bruits. LUNGS: Showed decreased breath sounds on the left side and some pain over the left rib cage. ABDOMEN: Soft and nontender. There were no palpable masses. EXTREMITIES: Good pulses bilaterally. ASSESSMENT: The patient is status post falls 3 weeks ago with left rib fractures and a contained splenic hematoma, and now has developed a left pleural effusion secondary to this. She also has some questionable liver metastases, which could be secondary to breast cancer. PLAN: Will be to repeat CT scan of the chest and abdomen with contrast in a few days to re-evaluate all of the above diagnoses. There is no need for surgical intervention at this time. Thank you very much for asking me to see this patient. Job#: [id number] [facility]
== END 2017-02-07 20:20 | DRG 177 ==
LOC: ER 18:54 → MED/SURG3 02-03 00:37
PROVIDERS: ADMIT Internal Medicine; ATTEND Internal Medicine
PROC: 0W9B3ZX Drainage of Left Pleural Cavity, Percutaneous Approach, Diagnostic (ICD-10-PCS; principal; 2017-02-03)
DX: J69.0 Pneumonitis due to inhalation of food and vomit (principal); G93.41 Metabolic encephalopathy; J90 Pleural effusion, not elsewhere classified; N39.0 Urinary tract infection, site not specified; G30.9 Alzheimer's disease, unspecified; F02.80 Dementia in other diseases classified elsewhere, unspecified severity, without behavioral disturbance, psychotic disturbance, mood disturbance, and anxiety; S22.32XA Fracture of one rib, left side, initial encounter for closed fracture; K86.2 Cyst of pancreas; E86.0 Dehydration; D63.8 Anemia in other chronic diseases classified elsewhere; D73.5 Infarction of spleen; Z86.73 Personal history of transient ischemic attack (TIA), and cerebral infarction without residual deficits; I10 Essential (primary) hypertension; W19.XXXA Unspecified fall, initial encounter; Z85.3 Personal history of malignant neoplasm of breast; Z90.12 Acquired absence of left breast and nipple; E87.6 Hypokalemia; I69.320 Aphasia following cerebral infarction; N63.0 Unspecified lump in unspecified breast
CPT/HCPCS: 32555; 36415; 70450; 71010; 71250; 74177; 74470; 76604; 76856; 80048; 80053; 81001; 82140; 82150; 82550; 82553; 82945; 83615; 83690; 83735; 84134; 84157; 84436; 84443; 84479; 84484; 85014; 85018; 85025; 85610; 85730; 86301; 86304; 87040; 87070; 87071; 87086; 87102; 87116; 87205; 87206; 88112; 88305; 89051; 97139; 99284; J0456; J0696; J3370; J3480; J7030; J7050; Q9967